=== PATIENT | male | born 1985 | race American Indian/Alaskan Native ===

== ENCOUNTER 2020-12-17 21:09 | Emergency (ER) | payer SELFPAY ==
[2020-12-17 21:50] LABS: Basophils % (Auto) 0.7 % (0.0-1.8); Eosinophils # (Auto) 0.1 K/mm3 (0.0-0.4); Eosinophils % (Auto) 2.1 % (0.0-4.3); Hematocrit 37.8 % (35.5-45.6); Hemoglobin 12.6 gm/dl (11.8-15.2); Lymphocytes # (Auto) 2.6 K/mm3 (1.2-5.4); Lymphocytes % (Auto) 39.2 % (13.4-35.0); Mean Corpuscular HGB Conc 33 % (32-34); Mean Corpuscular Volume 88 fl (84-94); Monocytes # (Auto) 0.7 K/mm3 (0.0-0.8); Monocytes % (Auto) 9.9 % (0.0-7.3); Platelet Count 222 K/mm3 (140-440); Red Blood Count 4.28 M/mm3 (3.65-5.03); Red Cell Distribution Width 13.9 % (13.2-15.2)
[2020-12-17 22:02] LABS: Alanine Aminotransferase 8 units/L (7-56); Albumin 4.1 g/dL (3.9-5); BUN/Creatinine Ratio 15; Blood Urea Nitrogen 17 mg/dL (9-20); Calcium 8.6 mg/dL (8.4-10.2); Hemolysis Index 1
--- NOTE | 2020-12-17 22:06 | Emergency Department Report ---
Blank Doc - Documentation Documentation: This is a 35-year-old male that presents with abdominal pain with nausea. Pat chaya denies any vomiting. Patient stated also has rectal pain and believes he is also constipated for the past week. 1- This initial assessment/diagnostic orders/clinical plan/ treatment(s) is/are subject to change based on pt's health status, clinical progression and re- assessment by fellow clinical providers in the ED. Further treatment and workup at subsequent clinical provers discretion. Patient/guardians urged not to elope from ED as their condition may be serious if not clinically assessed and managed. 2-labs 3-UA 4-x-ray
--- NOTE | 2020-12-17 22:44 | XRay Report ---
ABDOMEN SERIES WITH ONE VIEW CHEST INDICATION / CLINICAL INFORMATION: constipation. COMPARISON: None available. FINDINGS: TUBES / LINES: None. BOWEL GAS PATTERN: Nonobstructive. Moderate amount of stool throughout the colon suggests constipatio n. FREE AIR / EXTRALUMINAL GAS: None seen. ADDITIONAL FINDINGS: No significant additional findings. CHEST: Visualized chest shows no significant abnormality. IMPRESSION: 1. No acute abnormality. Findings suggestive of constipation. Signer Name: Canelo Linton MD Signed: 12/17/2020 10:39 PM Workstation Name: [id number]
--- NOTE | 2020-12-17 22:54 | Emergency Department Report ---
ED General Adult HPI - General Chief complaint: Rectal Pain Stated complaint: RECTAL PAIN;UNABLE TO HAVE A BOWEL MOVEMENT PUI?: No Time Seen by Provider: 12/17/20 21:25 Source: patient, RN notes reviewed Mode of arrival: Ambulatory Limitations: No Limitations - History of Present Illness Initial comments: The patient was evaluated in the emergency department for symptoms described in the history of present illness. He/she was evaluated in the context of the global COVID-19 pandemic, which necessitated consideration that the patient might be at risk for infection with the virus that causes COVID-19. Institutional protocols and algorithms that pertain to the evaluation of patients at risk for COVID-19 are in a state of rapid change based on information released by regulatory bodies including the CDC and federal and [place] [employer] organizations. These policies and algorithms were followed during the patient's care in the emergency department. Please note that these policies, procedures and recommendations changed on a rapid basis. Chaperoned by OC Turcios Patient is a 35-year-old gentleman. The patient is not known to myself previously. He has a history of being HIV positive. He is currently on highly active antiretroviral therapy. Secondary to current insurance issues, he is still compliant with his medications, but he is running out, and does not have a local primary care doctor, or infectious disease specialist that he is seeing currently. The patient presents to the ER with a primary complaint of feeling like he is constipated, and rectal pain. The patient denies headache, neck pain, chest pain, abdominal pain, shortness of breath, fever, chills. Patient defecated this morning, but it seems less than normal. There is no hematemesis of bright red blood per rectum. The patient denies urinary symptoms. Patient reports participating and passive receptive anal intercourse multiple times this past week. He reports that intercourse is occasionally painful, and he has been using coconut oil as a lubricant. He reports passing gas, and denies abdominal pain at this time. -: Gradual, days(s) Quality: aching, other (Cramping) Consistency: intermittent Improves with: rest Worsens with: other (Attempting to defecate, receptive anal intercourse) - Related Data Previous Rx's Medication Instructions Recorded Last Taken Type polyethylene glycoL 3350 [Miralax 17 gm PO QDAY #30 packet 12/17/20 Unknown Rx 3350] Allergies Allergy/AdvReac Type Severity Reaction Status Date / Time No Known Allergies Allergy Verified 12/17/20 21:28 ED Review of Systems ROS: Stated complaint: RECTAL PAIN;UNABLE TO HAVE A BOWEL MOVEMENT Other details as noted in HPI Comment: All other systems reviewed and negative Gastrointestinal: constipation, other (Rectal pain). denies: nausea, vomiting, hematemesis, melena, hematochezia ED Past Medical Hx - Past Medical History Previous Medical History?: Yes Hx HIV: Yes - Surgical History Past Surgical History?: No - Social History Smoking Status: Current Every Day Smoker Substance Use Type: Marijuana - Medications Home Medications: Home Medications Medication Instructions Recorded Confirmed Last Taken Type polyethylene glycoL 3350 [Miralax 17 gm PO QDAY #30 packet 12/17/20 Unknown Rx 3350] ED Physical Exam - General Limitations: No Limitations General appearance: alert, in no apparent distress - Head Head exam: Present: atraumatic, normocephalic - Eye Eye exam: Present: normal appearance, EOMI. Absent: nystagmus - ENT ENT exam: Present: normal exam, normal orophraynx, mucous membranes moist, normal external ear exam - Neck Neck exam: Present: normal inspection, full ROM. Absent: tenderness, meningismus - Respiratory Respiratory exam: Present: normal lung sounds bilaterally. Absent: respiratory distress, wheezes, rales, rhonchi, stridor, decreased breath sounds - Cardiovascular Cardiovascular Exam: Present: regular rate, normal rhythm, normal heart sounds. Absent: bradycardia, tachycardia, irregular rhythm, systolic murmur, diastolic murmur, rubs, gallop - GI/Abdominal GI/Abdominal exam: Present: soft, normal bowel sounds. Absent: distended, tenderness, guarding, rebound, rigid, pulsatile mass - Rectal Rectal exam: Present: deferred, normal inspection, normal rectal tone, heme (-) stool, other (There is an anal fissure at 6:00.). Absent: heme (+) stool, black stool, bloody stool, mass - Extremities Exam Extremities exam: Present: normal inspection, full ROM, other (2+ pulses noted in the bilateral upper and lower extremities. There is no palpable cord. negative Homans sign. Muscular compartments are soft. The pelvis is stable.). Absent: pedal edema, joint swelling, calf tenderness - Back Exam Back exam: Present: normal inspection, full ROM. Absent: tenderness, CVA tenderness (R), CVA tenderness (L), paraspinal tenderness, vertebral tenderness - Neurological Exam Neurological exam: Present: alert, normal gait, other (No facial droop. Tongue midline. Extraocular movements intact bilaterally. Facial sensation intact to light touch in V1, V2, V3 distribution bilaterally. 5 and a 5 strength in 4 extremities. Sensation intact to light touch in 4 extremities.). Absent: motor sensory deficit - Psychiatric Psychiatric exam: Present: anxious - Skin Skin exam: Present: warm, dry, intact, normal color. Absent: rash ED Course Vital Signs 12/17/20 21:27 Temperature 98.1 F Pulse Rate 68 Respiratory 16 Rate Blood Pressure 130/101 O2 Sat by Pulse 97 Oximetry ED Medical Decision Making - Lab Data Result diagrams: 12/17/20 21:28 12/17/20 21:28 Vital Signs 12/17/20 21:27 Temperature 98.1 F Pulse Rate 68 Respiratory 16 Rate Blood Pressure 130/101 O2 Sat by Pulse 97 Oximetry Lab Results 12/17/20 12/17/20 Range/Units 21:28 21:28 WBC 6.7 (4.5-11.0) K/mm3 RBC 4.28 (3.65-5.03) M/mm3 Hgb 12.6 (11.8-15.2) gm/dl Hct 37.8 (35.5-45.6) % MCV 88 (84-94) fl MCH 29 (28-32) pg MCHC 33 (32-34) % RDW 13.9 (13.2-15.2) % Plt Count 222 (140-440) K/mm3 Lymph % (Auto) 39.2 H (13.4-35.0) % Dundy % (Auto) 9.9 H (0.0-7.3) % Eos % (Auto) 2.1 (0.0-4.3) % Baso % (Auto) 0.7 (0.0-1.8) % Lymph # (Auto) 2.6 (1.2-5.4) K/mm3 Dundy # (Auto) 0.7 (0.0-0.8) K/mm3 Eos # (Auto) 0.1 (0.0-0.4) K/mm3 Baso # (Auto) 0.0 (0.0-0.1) K/mm3 Seg Neutrophils % 48.1 (40.0-70.0) % Seg Neutrophils # 3.2 (1.8-7.7) K/mm3 Sodium 137 (137-145) mmol/L Potassium 3.9 (3.6-5.0) mmol/L Chloride 102.2 (98-107) mmol/L Carbon Dioxide 29 (22-30) mmol/L Anion Gap 10 mmol/L BUN 17 (9-20) mg/dL Creatinine 1.1 (0.8-1.3) mg/dL Estimated GFR > 60 ml/min BUN/Creatinine Ratio 15 % Glucose 117 H (75-100) mg/dL Calcium 8.6 (8.4-10.2) mg/dL Total Bilirubin < 0.20 (0.1-1.2) mg/dL AST 14 (5-40) units/L ALT 8 (7-56) units/L Alkaline Phosphatase 59 (35-129) units/L Total Protein 6.6 (6.3-8.2) g/dL Albumin 4.1 (3.9-5) g/dL Albumin/Globulin Ratio 1.6 % Lipase 132 H (13-60) units/L - Radiology Data Radiology results: pending, report reviewed, image reviewed ABDOMEN SERIES WITH ONE VIEW CHEST INDICATION / CLINICAL INFORMATION: constipation. COMPARISON: None available. FINDINGS: TUBES / LINES: None. BOWEL GAS PATTERN: Nonobstructive. Moderate amount of stool throughout the colon suggests constipation. FREE AIR / EXTRALUMINAL GAS: None seen. ADDITIONAL FINDINGS: No significant additional findings. CHEST: Visualized chest shows no significant abnormality. IMPRESSION: 1. No acute abnormality. Findings suggestive of constipation. Signer Name: Canelo Linton MD Signed: 12/17/2020 9:39 PM Workstation Name: [id number] - Medical Decision Making Differential diagnosis, including but not limited to: Anal fissure, constipation Assessment and plan: 35-year-old gentleman with rectal pain and probable constipation. Suspect anal fissure, likely secondary to straining, likely secondary to constipation. Extensive discussion held with patient regarding need for diet lifestyle modifications. Also counseled the patient to avoid using coconut oil for in timate activities, we recommended oil or water-based lubricants intended for human sexual activity. We will also discharged with MiraLAX prescription, and patient will be given magnesium citrate to take home. He can follow-up with an outpatient primary care doctor, and we will refer him to local infectious disease. He verbalizes understanding. Laboratory studies and x-ray were ordered prior to my personal evaluation of this patient. They are unremarkable, with exception of constipation suggested on x-ray which we anticipated. The patient does not have signs, symptoms or history to suggest pancreatitis, elevated lipase reviewed and appreciated, and asymptomatic clinically, he can follow-up with an outpatient primary care doctor or ID specialist for this. Critical care attestation.: If time is entered above; I have spent that time in minutes in the direct care of this critically ill patient, excluding procedure time. ED Disposition Clinical Impression: Rectal pain Constipation Qualifiers: Constipation type: other constipation type Qualified Code(s): K59.09 - Other constipation Disposition: DC- TO HOME OR SELFCARE Is pt being admited?: No Does the pt Need Aspirin: No Condition: Good Instructions: Constipation, Adult, Anal Fissure, Adult, How to Take a Sitz Bath Additional Instructions: As we discussed, constipation typically takes 3 to 6 weeks to completely resolve. Recommend consumption of 3 to 6 cups of water per day indefinitely, consumption of plenty of fiber, vegetables, and lean protein, avoidance of fried, processed foods, simple carbohydrates. Use the MiraLAX medication as needed and directed. When engaging in intimate activity, please use water-based oral oil-based lubricants that have been specifically formulated for human intermittent/sexual activity. Recommend follow-up with a primary care doctor, such as Dr. Lucie Plaza Within the next month. Recommend follow-up with your infectious disease specialist, or local infectious disease specialist, such as Dr. Pratt, within the next 4 to 6 weeks. Please return to the emergency room right away with new pain, worsened pain, migration of pain, projectile vomiting, change in mental status, confusion, inability to tolerate liquid feeds, new, worsened or different symptoms not present on the initial emergency room evaluation. Referrals: AZALIA PLAZA MD [Staff Physician] - as needed JOSE PRATT MD [Staff Physician] - as needed
[2020-12-17] MEDS ORDERED: MAGNESIUM CITRATE 300 ML ORAL LIQD PO ONE (23:03)
[2020-12-18 00:02] VITALS: BP 102/62
== END 2020-12-18 00:02 | disposition home or self-care (01) ==
LOC: ED 21:09
DX: K59.00 Constipation, unspecified (principal); K62.89 Other specified diseases of anus and rectum; Z79.899 Other long term (current) drug therapy; Z21 Asymptomatic human immunodeficiency virus [HIV] infection status; F17.200 Nicotine dependence, unspecified, uncomplicated; F12.90 Cannabis use, unspecified, uncomplicated
CPT/HCPCS: 36415; 74022; 80053; 83690; 85025